=== PATIENT | female | born 1965 | race Caucasian/White ===

== ENCOUNTER 2018-01-19 07:03 | Emergency (ER) | payer OTHER ==
[2018-01-19 07:22] VITALS: BP 125/77
--- NOTE | 2018-01-19 07:43 | ED ---
Throat Pain/Nasal Congestion - HPI Summary HPI Summary: pt states that she used a purple eyeliner. she started having eye irritation. she denies any vision changes or pain. she states that this has happened before with certain colored eyeliners. she denies any eye pain, n/v, fever or chills. - History of Current Complaint Chief Complaint: Kat Hx Obtained From: Patient Onset/Duration: Gradual Onset Severity: Mild - Allergies/Home Medications Allergies/Adverse Reactions: Allergies Allergy/AdvReac Type Severity Reaction Status Date / Time erythromycin base AdvReac Intermediate stomach Verified 01/19/18 07:23 pain Home Medications: Home Medications NK [No Home Medications Reported] 01/19/18 [History Confirmed 01/19/18] PMH/Surg Hx/FS Hx/Imm Hx Previously Healthy: Yes Endocrine/Hematology History: Denies: Hx Anticoagulant Therapy Respiratory History: Denies: Hx Asthma - Surgical History Surgery Procedure, Year, and Place: c- section x2, tubal ligation tonsils Infectious Disease History: No Infectious Disease History: Denies: Traveled Outside the in Last 30 Days - Social History Alcohol Use: Occasionally Substance Use Type: Reports: None Smoking Status (MU): Never Smoked Tobacco Review of Systems Constitutional: Negative Positive: Other - red eyes. Negative: Photophobia, Blurred Vision, Diplopia, Drainage, Erythema Cardiovascular: Negative Respiratory: Negative Gastrointestinal: Negative Genitourinary: Negative Musculoskeletal: Negative Skin: Negative Positive: Headache - very mild. Negative: Weakness Psychological: Normal All Other Systems Reviewed And Are Negative: No Physical Exam Triage Information Reviewed: Yes Vital Signs On Initial Exam: Initial Vitals Temp Pulse Resp BP Pulse Ox 98.4 F 63 18 125/77 100 01/19/18 07:17 01/19/18 07:17 01/19/18 07:17 01/19/18 07:17 01/19/18 07:17 Vital Signs Reviewed: Yes Appearance: Positive: Well-Appearing, No Pain Distress, Well-Nourished Skin: Positive: Warm, Dry Head/Face: Positive: Normal Head/Face Inspection Eyes: Positive: EOMI, FADI, Conjunctiva Inflammed ENT: Positive: Hearing grossly normal Neck: Positive: Supple, Nontender Respiratory/Lung Sounds: Positive: Clear to Auscultation, Breath Sounds Present Cardiovascular: Positive: Normal, RRR Abdomen Description: Positive: Nontender, Soft Bowel Sounds: Positive: Present Musculoskeletal: Positive: Normal, Strength/ROM Intact Neurological: Positive: Normal, Sensory/Motor Intact, CN Intact II-III Psychiatric: Positive: Normal AVPU Assessment: Alert Diagnostics - Vital Signs Vital Signs Temp Pulse Resp BP Pulse Ox 01/19/18 07:17 98.4 F 63 18 125/77 100 - Laboratory Lab Statement: Any lab studies that have been ordered have been reviewed, and results considered in the medical decision making process. EENT Course/Dx - Course Course Of Treatment: pt has no pain. this is not the presentation of acute angle closure glaucoma or corneal abrasion. This looks like a chemical conjunctivitis versus early scleritis. I will give pt benadryl and one dose of steroids. I further encouraged her to take benadryl over the next 1-2 days. I instructed her to go see an opometrist if this persists tomorrow. pt voiced understanding of instructions. - Diagnoses Provider Diagnoses: Chemical conjunctivitis of both eyes Discharge - Sign-Out/Discharge Documenting (check all that apply): Patient Departure All imaging exams completed and their final reports reviewed: No Studies - Discharge Plan Condition: Stable Disposition: HOME Patient Education Materials: Conjunctivitis (ED) Referrals: Pita Montero MD [Primary Care Provider] - Additional Instructions: follow up with your doctor. if your symptoms persist, please go see an multi operation machine operator tomorrow. take benadryl as instructed. return if worse or any new symptoms. - Billing Disposition and Condition Condition: STABLE Disposition: Home
[2018-01-19] MEDS ORDERED: Dexamethasone TAB* 4 MG PO ONE (07:44)
[2018-01-19] MEDS ORDERED: diPHENhydraMINE PO* 25 MG PO ONE (07:45)
== END 2018-01-19 07:50 | disposition home or self-care (01) ==
LOC: UCCORT 07:03
DX: S61.432A Puncture wound without foreign body of left hand, initial encounter (principal); Z88.0 Allergy status to penicillin; W26.0XXA Contact with knife, initial encounter; Y92.9 Unspecified place or not applicable
CPT/HCPCS: 99202; A9270-GY; G0463; J8540